=== PATIENT | female | born 1985 | race Caucasian/White ===

== ENCOUNTER → 2016-05-31 | Outpatient (CLI) | payer BC | END | disposition home or self-care (01) | LOC: LABWHC1 10:45 | PROVIDERS: ATTEND Obstetrics & Gynecology | DX: Z36 Encounter for antenatal screening of mother (principal) | CPT/HCPCS: 36415; 82950 ==

== ENCOUNTER 2016-08-24 14:23 | Inpatient (IN) | payer BC ==
[2016-08-24] MEDS: LACTATED RINGERS 1,000 ML IV SCH ×2 (14:40→15:26)
[2016-08-24] MEDS ORDERED: TERBUTALINE 1 MG/ML VIAL SQ PRN (14:47)
[2016-08-24] MEDS ORDERED: CARBOPROST TROMETHAMINE 250 MCG/ML 1 ML AMP IM PRN (14:47)
[2016-08-24] MEDS ORDERED: LIDOCAINE 1% (PF) 10 MG/ML (30 ML SDV) SQ PRN (14:47)
[2016-08-24] MEDS ORDERED: METHYLERGONOVINE 0.2 MG/ML 1 ML AMP IM PRN (14:47)
[2016-08-24] MEDS ORDERED: OXYTOCIN 10 UNIT/ML 1 ML VIAL IM PRN (14:47)
[2016-08-24] MEDS ORDERED: SODIUM CHLORIDE 0.9% 100 ML BAG ONE (15:00)
[2016-08-24] MEDS ORDERED: BUPIVACAINE (PF) 0.25% 30 ML VIAL ONE (15:00)
[2016-08-24] MEDS ORDERED: fentaNYL (PF) 50 MCG/ML 5 ML AMP ONE (15:00)
[2016-08-24 15:22] LABS: Basophils % (A) 0 %; CH 31.8; Eosinophils # (A) 0.1 k/uL (0-0.7); Eosinophils % (A) 1 %; HCT 37.8 % (34.0-46.0); HDW 2.79; HGB 13.1 gm/dL (11.4-16.0); Luc # (Auto) 0.25; Luc % (Auto) 3; Lymphocytes # (A) 1.8 k/uL (1.0-4.8); Lymphocytes % (A) 20 %; MCH 31.7 pg (25.0-35.0); MCHC 34.7 g/dL (31.0-37.0); MCV 91.4 fL (80.0-100.0); Mean Platelet Volume 8.1; Monocytes # (A) 0.5 k/uL (0-1.0); Monocytes % (A) 5 %; Neutrophils # (A) 6.2 k/uL (1.3-7.7); Neutrophils % (A) 70 %; RBC 4.14 m/uL (3.80-5.40); RDW 14.2 % (11.5-15.5); WBC 8.8 k/uL (3.8-10.6); WBC (Perox) 8.65
--- NOTE | 2016-08-24 16:09 | P.HPOB ---
History of Present Illness H&P Date: 08/24/16 Chief Complaint: Strong, regular uterine contractions. This is a 31-year-old white female 2 para 1001 EDC 08/25/2016 at 39-6/7 weeks' gestation. Patient presented with strong regular uterine contractions at home. She denied fluid leakage or vaginal bleeding. Fetus is been active throughout the . history blood type O positive, rubella status immune. Hepatitis B surface antigen, HIV testing, urine culture, gonorrhea and chlamydia cultures, Pap smear all negative. One-hour Glucola 131. Group B strep cultures negative. Past surgical history is negative. Past medical history is unremarkable. Current medications vitamins daily. ALLERGIES none known. Social history patient is , she has a remote history of tobacco use, no alcohol or drug use noted. On exam this is a pleasant white female, she is 5 foot 7 inches, 175 pounds, blood pressure 125/69, vital signs are stable and she is afebrile. The general physical exam is within normal limits. The chest is clear in all hong. The cervix is 9 cm dilated, 100% effaced, -2 station, vertex presentation. Artificial amniorrhexis revealed clear fluid. heart rate is in the 140s with frequent accelerations, consistent with reactive NST. Impression: 39-6/7 weeks intrauterine , active spontaneous labor. All signs reassuring. Epidural in place. Plan: Close maternal and surveillance. Anticipate normal spontaneous vaginal delivery. Review of Systems Constitutional: Reports as per HPI Past Medical History Past Medical History: No Reported History Additional Past Medical History / Comment(s): OB history: This is her first . She transferred care to ca at 20 weeks from [facility]. O+, abs neg, Rub Imm, RPR NR, Hep B neg, HIV NR, neg quad, normal anatomy US, normal 1hr GTT and neg GBS. History of Any Multi-Drug Resistant Organisms: None Reported Past Surgical History: No Surgical Hx Reported Past Psychological History: No Psychological Hx Reported Smoking Status: Never smoker Past Alcohol Use History: None Reported Past Drug Use History: None Reported - Past Family History Father Family Medical History: Diabetes Mellitus Medications and Allergies Home Medications Medication Instructions Recorded Confirmed Type Vit No.124/Iron/FA 1 each PO DAILY 09/07/14 08/24/16 History [ Vitamin Tablet] Allergies Allergy/AdvReac Type Severity Reaction Status Date / Time No Known Allergies Allergy Verified 08/24/16 14:45 Exam - Vital Signs Vital signs: Intake and Output 08/24/16 08/24/16 08/24/16 06:59 14:59 22:59 Other: Weight 79.379 kg Patient Weight 08/25/16 06:59 Weight 79.379 kg See my dictation under HPI, please. Results Result Diagrams: 08/24/16 14:40 Abnormal Lab Results - Last 24 Hours (Table) 08/24/16 Range/Units 14:40 Plt Count 127 L (150-450) k/uL Assessment and Plan Plan: Close maternal and surveillance. Anticipate normal spontaneous vaginal delivery. Time with Patient: Less than 30
[2016-08-24] MEDS ORDERED: WITCH HAZEL 1 EACH MED..PAD TOPICAL PRN (17:49)
[2016-08-24] MEDS ORDERED: HYDROCORTISONE 2.5% RECTAL CREAM 30 GM TUBE RECTAL PRN (17:49)
[2016-08-24] MEDS ORDERED: Acetaminophen-Codeine 300-30mg TAB PO PRN (17:49)
[2016-08-24] MEDS ORDERED: SIMETHICONE 80 MG CHEWABLE PO PRN (17:49)
[2016-08-24] MEDS ORDERED: ACETAMINOPHEN TAB 325 MG TAB PO PRN (17:49)
[2016-08-24] MEDS ORDERED: LANOLIN CREAM 5 GM TUBE TOPICAL PRN (17:49)
[2016-08-24] MEDS ORDERED: diphenhydrAMINE 25 MG CAP PO PRN (17:49)
[2016-08-24] MEDS ORDERED: BENZOCAINE/MENTHOL SPRAY 1 GM/SPRAY AEROSOL TOPICAL PRN (17:49)
[2016-08-24] MEDS ORDERED: ZOLPIDEM 5 MG TAB PO PRN (17:49)
[2016-08-24] MEDS ORDERED: diphenhydrAMINE 50 MG/ML 1 ML VIAL IVP PRN ×2 (17:49)
[2016-08-24] MEDS ORDERED: diphenhydrAMINE 50 MG CAP PO PRN (17:49)
[2016-08-24] MEDS ORDERED: diphenhydrAMINE ELIXIR 25 MG/10 ML CUP PO PRN (17:49)
--- NOTE | 2016-08-24 17:50 | P.PROBDLV ---
Vaginal Delivery Note - . Vaginal Delivery Note: This is a 31-year-old white female 2 para 1001 EDC 08/25/2016 at 39-6/7 weeks' gestation. Patient presented with strong regular uterine contractions at home. Fetus is been active throughout the . She was scheduled for induction tomorrow for favorable multiparous cervix. She denied fluid leakage or vaginal bleeding. is essentially unremarkable, please see my dictated history and physical for details. Blood type is O+, rubella status immune, group B strep cultures negative. On admission patient was 6 cm dilated. Artificial amniorrhexis revealed clear fluid. She was having strong regular uterine contractions and epidural was requested. This was placed without difficulty per the anesthesia staff. She remained 9 cm for an hour and therefore a small amount of oxytocin augmentation was started. Shortly thereafter she had the urge to push and was noted to be completely dilated at 1720 hrs. The perineal body was prepped and draped in usual sterile fashion. She pushed with good effort and the infant's head crowned occiput anterior. There was no nuchal cord noted. The infant restituted accordingly. The oropharynx, nasopharynx and external nares were all bulb suctioned on the perineal body. Patient was officially delivered of a liveborn female at 1729 hrs. Umbilical cord was doubly clamped and ligated. She was handed to waiting nurses for evaluation where scores of 8 and 9 at one and 5 minutes respectively were given. weighed 3820 g or 8 lbs. 7 oz. Uterus was massaged, and the placenta was delivered spontaneously at 1732 hrs., it was inspected and noted to be intact with trivascular cord. Inspection of the cervix, vagina, perineum and periurethral areas revealed a small first- degree perineal laceration. This was easily repaired in the usual fashion using 3-0 Vicryl suture. Fundus is firm and in the midline, symmetric and 18 week size upon completion of delivery. Estimated blood loss 250 mL's. All sponge needle and instrument counts are correct at the end of this procedure. The patient and her family are allowed to begin the bonding experience in the LDR.
[2016-08-24] MEDS ORDERED: OXYTOCIN 30 UNITS/500 ML NS 30 UNIT in SALINE 1 500ML.BAG IV SCH (18:00)
[2016-08-24] MEDS: IBUPROFEN 600 MG TAB PO PRN (19:31)
[2016-08-24] MEDS: SENNOSIDES-DOCUSATE SODIUM 1 EACH TAB PO SCH (19:41)
--- NOTE | 2016-08-25 08:02 | P.DS ---
Providers Date of admission: 08/24/16 14:23 Expected date of discharge: 08/25/16 Attending physician: Ginna Lin [facility] care physician: [facility] Course: This is a 31-year-old white female 2 para 1001 EDC 08/25/2016 at 39-6/7 weeks' gestation. Patient presented from home with regular strong uterine contractions, in spontaneous labor. was unremarkable, group B strep cultures negative, blood type O positive, rubella status immune. Please see my dictated history and physical for details. Artificial amniorrhexis revealed clear fluid. Epidural was placed per her request. She went on to swiftly deliver a liveborn female infant with scores of 8 and 9 at one and 5 minutes respectively. weighed 3820 g or 8 lbs. 7 oz. There was a small first-degree perineal laceration easily repaired , estimated blood loss 250 mL's. Please see my dictated delivery note for details. This morning the patient and her are doing well. The patient is voiding , ambulating and passing flatus without difficulty. Vital signs are stable and she is afebrile. Fundus is firm and in the midline, symmetric and 18 week size. Perineal body is clean and dry. Breasts are not engorged. Pain is well- controlled. Lochia rubra is minimal to moderate. Patient has no complaints. She is being discharged home later today in very good condition. She will follow-up with me in the office in 6 weeks. She has a breast pump at home. She will call with any fevers shakes or chills, foul smelling or copious lochia , with the passage of large blood clots, or with any pain not alleviated by over -the-counter ibuprofen. She will take 200 mg ibuprofen pills, 3 every 6 hours as needed for pain. No intercourse tampons or douching. We have briefly discussed our options for contraception and we will discuss this further in the office. will follow up with ground support agent as recommended. Patient Condition at Discharge: Good Plan - Discharge Summary Discharge Medication List Vit No.124/Iron/FA [ Vitamin Tablet] 1 each PO DAILY 09/07/14 [ History] Follow up Appointment(s)/Referral(s): Ginna Lin MD [STAFF PHYSICIAN] - 2 Weeks Discharge Disposition: HOME SELF-CARE
[2016-08-25] MEDS: IBUPROFEN 600 MG TAB PO PRN (09:31)
[2016-08-25] MEDS: SENNOSIDES-DOCUSATE SODIUM 1 EACH TAB PO SCH (09:31)
[2016-08-25 09:56] VITALS: BP 116/72; PULSE 81; RESP 18; TEMP 97.6
== END 2016-08-25 18:15 | disposition home or self-care (01) | DRG 775 ==
LOC: 4FBP 14:23
PROVIDERS: ADMIT Obstetrics & Gynecology; ATTEND Obstetrics & Gynecology
PROC: 0HQ9XZZ Repair Perineum Skin, External Approach (ICD-10-PCS; principal; 2016-08-24)
PROC: 3E0R3CZ (ICD-10-PCS; principal; 2016-08-24)
PROC: 00HU33Z Insertion of Infusion Device into Spinal Canal, Percutaneous Approach (ICD-10-PCS; principal; 2016-08-24)
PROC: 10E0XZZ Delivery of Products of Conception, External Approach (ICD-10-PCS; principal; 2016-08-24)
PROC: 10907ZC Drainage of Amniotic Fluid, Therapeutic from Products of Conception, Via Natural or Artificial Opening (ICD-10-PCS; principal; 2016-08-24)
DX: O70.0 First degree perineal laceration during delivery (principal); Z87.891 Personal history of nicotine dependence; Z37.0 Single live birth; Z3A.39 39 weeks gestation of pregnancy
CPT/HCPCS: 85025; 88307

== ENCOUNTER → 2017-05-07 | Outpatient (CLI) | payer BC ==
[2017-05-07 20:00] LABS: Basophils % (A) 1 %; Eosinophils # (A) 0.1 k/uL (0-0.7); Eosinophils % (A) 2 %; HCT 43.9 % (34.0-46.0); HGB 14.3 gm/dL (11.4-16.0); Lymphocytes # (A) 1.6 k/uL (1.0-4.8); Lymphocytes % (A) 27 %; MCH 29.6 pg (25.0-35.0); MCHC 32.5 g/dL (31.0-37.0); Mean Platelet Volume 8.6; Monocytes # (A) 0.4 k/uL (0-1.0); Monocytes % (A) 6 %; Neutrophils # (A) 3.8 k/uL (1.3-7.7); Neutrophils % (A) 63 %; Platelet Count 241 k/uL (150-450); RBC 4.83 m/uL (3.80-5.40); RDW 13.5 % (11.5-15.5); WBC 6.1 k/uL (3.8-10.6)
[2017-05-07 20:16] LABS: ALT 39 U/L (9-52); AST 30 U/L (14-36); Albumin 4.7 g/dL (3.5-5.0); Alkaline Phosphatase 52 U/L (38-126); Anion Gap 13 mmol/L; Blood Urea Nitrogen 12 mg/dL (7-17); Calcium 9.6 mg/dL (8.4-10.2); Carbon Dioxide 26 mmol/L (22-30); Chloride 104 mmol/L (98-107); Cholesterol 220 mg/dL (<200); Glucose 87 mg/dL (74-99); HDL Cholesterol 62 mg/dL (40-60); LDL Cholesterol,Calculated 138 mg/dL (0-99); Potassium 4.6 mmol/L (3.5-5.1); Sodium 143 mmol/L (137-145); Total Bilirubin 0.7 mg/dL (0.2-1.3); Total Protein 8.1 g/dL (6.3-8.2); Triglycerides 99 mg/dL (<150)
[2017-05-07 20:27] LABS: T4, Free (Free Thyroxine) 1.42 ng/dL (0.78-2.19)
== END | disposition home or self-care (01) ==
LOC: MMGSC 12:00
PROVIDERS: ATTEND Family Medicine
DX: Z00.00 Encounter for general adult medical examination without abnormal findings (principal)
CPT/HCPCS: 36415; 80053; 80061; 84439; 84443; 85025

== ENCOUNTER → 2017-12-08 | Outpatient (CLI) | payer BC ==
--- NOTE | 2017-12-08 15:58 | USB ---
Reason for exam: clinical finding. Physical Findings: Nurse Summary: 1 cm nodule left breast at 11 o'clock. US Breast LT left complete breast ultrasound includes all four quadrants, the retroareolar region and axilla. Finding demonstrates a 0.5 x 0.3 x 0.4 cm to small to characterize lesion at 2 o'clock. These results were verbally communicated with the patient and result sheet given to the patient on 12/08/17. ASSESSMENT: Probably benign, BI-RAD 3 RECOMMENDATION: Ultrasound of the left breast in 6 months. Manage on a clinical basis.
== END | disposition home or self-care (01) ==
LOC: RADMAMWWP 14:55
PROVIDERS: ATTEND Obstetrics & Gynecology
DX: N63.20 Unspecified lump in the left breast, unspecified quadrant (principal)

== ENCOUNTER → 2017-12-19 | Outpatient (CLI) | payer BC ==
[2017-12-19 08:28] LABS: Basophils % (A) 1 %; Eosinophils # (A) 0.1 k/uL (0-0.7); Eosinophils % (A) 3 %; HGB 13.1 gm/dL (11.4-16.0); Lymphocytes % (A) 40 %; MCH 29.6 pg (25.0-35.0); MCHC 32.8 g/dL (31.0-37.0); MCV 90.4 fL (80.0-100.0); Mean Platelet Volume 7.2; Monocytes # (A) 0.4 k/uL (0-1.0); Monocytes % (A) 8 %; Neutrophils # (A) 2.3 k/uL (1.3-7.7); Neutrophils % (A) 46 %; Platelet Count 203 k/uL (150-450); RBC 4.43 m/uL (3.80-5.40); RDW 12.8 % (11.5-15.5)
== END | disposition home or self-care (01) ==
LOC: LABPAT 08:04
PROVIDERS: ATTEND Obstetrics & Gynecology
DX: Z01.812 Encounter for preprocedural laboratory examination (principal); N94.6 Dysmenorrhea, unspecified; N92.0 Excessive and frequent menstruation with regular cycle
CPT/HCPCS: 36415; 85025

== ENCOUNTER 2017-12-29 05:50 | Day surgery (SDC) | payer BC ==
[2017-12-23 09:02] VITALS: BMI 22.7
[~2017-12-29 05:50] MED LIST: DEXAMETHASONE SOD PHOSPHATE 10 MG/ML 1 ML VIAL IV ONE; LACTATED RINGERS 1,000 ML IV SCH; LIDOCAINE 1% 20 ML VIAL (10MG/ML) FOR IV START INTRADERMA PRN; MIDAZOLAM 2 MG/2 ML VIAL IV PRN; ONDANSETRON 4 MG/2 ML VIAL IVP ONE; Pre Op ABX Message 1 EACH MISC MISCELLANE ONE; fentaNYL (PF) 50 MCG/ML 2 ML AMP IV PRN
[2017-12-29 06:28] VITALS: RESP 16
[2017-12-29] MEDS ORDERED: KETOROLAC 30 MG/ML 1 ML VIAL ONE (07:34)
[2017-12-29] MEDS ORDERED: MIDAZOLAM 2 MG/2 ML VIAL ONE (07:34)
[2017-12-29] MEDS ORDERED: LIDOCAINE 1% INJ 10MG/ML (20 ML MDV) ONE (07:34)
[2017-12-29] MEDS ORDERED: PROPOFOL 10 MG/ML 20 ML VIAL IV ONE (07:34)
[2017-12-29] MEDS ORDERED: fentaNYL (PF) 50 MCG/ML 2 ML AMP ONE (07:34)
[2017-12-29] MEDS ORDERED: ACETAMINOPHEN IV (For NPO) 1,000 MG/100 ML VIAL ONE (07:34)
--- NOTE | 2017-12-29 08:02 | P.OP ---
Date of Procedure: 12/29/17 Preoperative Diagnosis: dysmenorrhea, menorrhagia Postoperative Diagnosis: same Procedure(s) Performed: hysteroscopy, novasure ablation Anesthesia: ASHAA Surgeon: Ginna Lin Estimated Blood Loss (ml): 5 IV fluids (ml): 300 Urine output (ml): 500 Pathology: none sent Condition: stable Disposition: PACU Description of Procedure: Patient is brought to the operating suite where a general anesthetic is administered without difficulty. She's placed in the dorsal lithotomy position. The cervix, vagina, perineum and lower abdominal areas are all prepped and draped in usual sterile fashion. The appropriate timeout is performed to assure proper patient and procedural identification. Urine hCG is negative. Examination under anesthesia reveals a small anteverted uterus, negative adnexa bilaterally. The bladder is drained for approximately 500 mL of clear yellow urine. Weighted speculum was placed into the vagina. The anterior lip of the cervix is grasped with a double-tooth tenaculum. Uterus sounds to a depth of 10.5 cm in the anteverted position. The cervix is gently and systematically dilated using Hanks dilators. Hysteroscope was introduced and the cavity is distended using sterile saline. Examination of the cavity reveals no septa, fibroids, polyps, or defects. Hysteroscope was removed. The NovaSure wand is opened. It is placed into the uterine cavity and seated appropriately. Uterine length of 6.5 cm, width of 2.7 cm is noted. Machine is properly calibrated and enabled. For 51 seconds with a power of 97 W the procedure is carried out. When it is completed, the wand is removed. Hysteroscope was then reintroduced and the cavity is distended. It appears to be uniformly and thoroughly blanched. Wand is removed. All sponge needle and instrument counts are correct. Patient is brought back to the recovery room in excellent condition with stable vital signs including a pulse of 59, blood pressure 94/54. She is given Toradol prior to leaving the operative suite. She will follow-up with me in the office in 2 weeks.
[2017-12-29 08:24] VITALS: TEMP 96.8
[2017-12-29 09:30] VITALS: BP 113/78; PULSE 75
== END 2017-12-29 09:45 | disposition home or self-care (01) ==
LOC: OR 05:50
PROVIDERS: ATTEND Obstetrics & Gynecology
DX: N94.6 Dysmenorrhea, unspecified (principal); N92.0 Excessive and frequent menstruation with regular cycle; Z87.891 Personal history of nicotine dependence
CPT/HCPCS: 81025; 58563; J2250; J1100; J2405; J2001; J3010; J1885; J0131; J2704

== ENCOUNTER → 2018-07-08 | Outpatient (CLI) | payer BC ==
--- NOTE | 2018-07-09 07:46 | USB ---
Reason for exam: clinical finding. Physical Findings: Nurse Summary: prominenat area of tissue left breast 3 o'clock, movable, soft (nurse ts). US Breast LT Left complete breast ultrasound includes all four quadrants, the retroareolar region and axilla. Finding demonstrates a 0.5 x 0.3 x 0.3cm lobular, hypoechoic lesion at 2 o'clock, stable. These results were verbally communicated with the patient and result sheet given to the patient on 07/08/18. ASSESSMENT: Benign, BI-RAD 2 RECOMMENDATION: Routine screening mammogram of both breasts at age 42.
== END ==
LOC: RADUSWWP 14:16
PROVIDERS: ATTEND Obstetrics & Gynecology
DX: R92.8 Other abnormal and inconclusive findings on diagnostic imaging of breast (principal)

== ENCOUNTER → 2023-10-07 | Outpatient (CLI) | payer BC ==
--- NOTE | 2023-10-08 09:22 | MM ---
Reason for Exam: Screening (asymptomatic). Baseline mammogram. Patient History: Menarche at age 17. First Full-Term at age 30. Last menstrual period: 09/29/2023 Risk Values: Belkis 5 year model risk: 0.3%. NCI Lifetime model risk: 10.3%. Prior Study Comparison: Patient's first Mammogram. Tissue Density: There are scattered areas of fibroglandular density. Findings: Analyzed By CAD. There is no suspicious group of microcalcifications or new suspicious mass in either breast. Overall Assessment: Negative, BI-RAD 1 Management: Screening Mammogram of both breasts in 1 year. . Patient should continue monthly self-breast exams. A clinical breast exam by your physician is recommended on an annual basis. This exam should not preclude additional follow-up of suspicious palpable abnormalities. Note on Belkis scores and lifetime risk: 1. A Belkis score greater than 3% is considered moderate risk. If this is the case, consider specialist referral to assess eligibility for a risk reducing agent. 2. If overall lifetime risk for the development of breast cancer is 20% or higher, the patient may qualify for future screening with alternating mammogram and breast MRI. Electronically signed and approved by: Micah Lake M.D. Radiologis
== END | disposition home or self-care (01) ==
LOC: RADMAMWWP 07:20
PROVIDERS: ATTEND Family Medicine
DX: Z12.31 Encounter for screening mammogram for malignant neoplasm of breast (principal)
CPT/HCPCS: 77067